=== PATIENT | female | born 1945 | race Two or more races ===

== ENCOUNTER 2024-03-06 11:26 | Emergency (ER) | payer MEDICARE ==
[~2024-03-06] VITALS: Ht 167.6 cm; Wt 105.0 kg
[2024-03-06 11:29] VITALS: BP 148/84; PULSE 82; RESP 18; TEMP 97.9; O2SAT 99
[2024-03-06] MEDS: TETANUS, DIPHTHERIA, PERTUSSIS VAC/PF 0.5ML (>10YR OLD) IM ONE (12:17)
[2024-03-06] MEDS: WATER FOR IRRIGATION,STERILE 500 ML IRRIG.SOLN IR ONE (12:18)
== END 2024-03-06 14:07 | disposition home or self-care (01) ==
LOC: ER 11:26
DX: S71.112A Laceration without foreign body, left thigh, initial encounter (principal); E11.9 Type 2 diabetes mellitus without complications; E78.00 Pure hypercholesterolemia, unspecified; I10 Essential (primary) hypertension; Z85.9 Personal history of malignant neoplasm, unspecified; X58.XXXA Exposure to other specified factors, initial encounter; Y93.89 Activity, other specified; Y92.89 Other specified places as the place of occurrence of the external cause; Y99.8 Other external cause status
CPT/HCPCS: 12001; 90471; 90715; 99283